=== PATIENT | female | born 1930 | race Caucasian/White ===

== ENCOUNTER → 2016-12-30 | Outpatient (REF) | payer MEDICARE ==
[2016-12-30 13:41] LABS: CREATININE FOR GFR 1.29 MG/DL (0.55-1.02); GLOMERULAR FILTRATION RATE 41.8 (>32)
== END ==
LOC: M LABDRAW1 12:55
PROVIDERS: ATTEND Orthopaedic Surgery
DX: M54.6 Pain in thoracic spine (principal)

== ENCOUNTER → 2017-05-28 | Outpatient (CLI) | payer MEDICARE ==
--- NOTE | 2017-05-28 15:39 | REP ---
MRI brain without contrast: History: Dizziness. Bilateral ringing in the ears. No comparison imaging. Technique: Axial and sagittal imaging planes are utilized for T1 and T2-weighted scans. Sequences include spin-echo, fast spin echo, FLAIR, and diffusion weighted sequences. MRI findings: Bony calvarium is intact. Craniocervical junction and upper cervical cord are unremarkable. There is diffuse moderate volume loss and concordant ventricular enlargement consistent with aging. There are fairly extensive small vessel microischemic changes bilaterally. There is no evidence of intracranial mass or infarction. Diffusion weighted scan show no evidence to suggest acute ischemia. No evidence of intracranial hemorrhage. There is no evidence of extra-axial fluid collection or midline shift. No intraorbital lesion is seen. The visualized paranasal sinuses are clear. Internal auditory canals and inner ear structures are normal and symmetric. Impression: Diffuse moderate atrophy and small vessel changes. No acute intracranial lesion. Signed by Issac Styles MD 05/28/2017 03:59 P
== END ==
LOC: M RAD 13:17
PROVIDERS: ATTEND Physician Assistant
DX: H93.13 Tinnitus, bilateral (principal); R42 Dizziness and giddiness